=== PATIENT | female | born 1940 | race Caucasian/White ===

== ENCOUNTER → 2022-08-30 | Outpatient (CLI) | payer MEDICARE, SELFPAY ==
--- NOTE | 2022-08-30 13:09 | CT_ITS ---
STUDY: CT ABDOMEN AND PELVIS WITH AND WITHOUT CONTRAST REASON FOR EXAM: Female, 82 years old. HYDRONEPHROSIS AND BLADDER PROLAPSE. DID 2 DEALYS UP TO 12 MINUTES AND NO CONTRAST IN BLADDER. RADIATION DOSAGE (If Supplied By Facility): CTDIvol = ( 19.12 ) mGy, DLP = ( 4302.19 ) mGycm TECHNIQUE: Transaxial images were obtained from the dome of the diaphragm to the symphysis pubis without oral contrast. IV 100mL Isovue-300 was administered. Sagittal and coronal images were reconstructed. Individualized dose optimization techniques were used for this CT. COMPARISON: None. FINDINGS: Small bilateral pleural effusions with bibasilar atelectasis. Coronary artery calcification. Normal liver. The patient is status post cholecystectomy. Normal spleen. There is diffuse atrophy of the pancreas. Normal bilateral adrenal glands. Marked degree of bilateral hydronephrosis. Bilateral hydroureters down to the urinary bladder. Nonspecific bilateral perinephric stranding more prominent on the right side. 2 cm cyst in the posterior midportion of the right kidney. There is a small hiatal hernia. Normal small intestine. There are multiple colonic diverticula consistent with diverticulosis. The appendix is visualized and appears normal. There is diffuse atherosclerotic calcification of the abdominal aorta and its major visceral branches, without a demonstrated aneurysm. Normal inferior vena cava. Normal retroperitoneum. The bladder is distended. There is evidence of bladder prolapse. As suspect prolapse of the bladder with a fibroid change. Normal abdominal wall. There are diffuse degenerative changes of the visualized lumbar spine. CT/CT Abd/Pelvis W/WO Contrast IMPRESSION: Bilateral hydronephrosis and hydroureters. There is evidence of a prolapse of the urinary bladder and uterus. Status post cholecystectomy. Mild degree of sigmoid diverticulosis. Small bilateral pleural effusions with bibasilar atelectasis. Electronically Signed: Gurinder Galvin MD at 14:13 EDT ,
[2022-08-30 13:40] LABS: CREATININE FINGERSTICK 1.1 mg/dL (0.55-1.02)
== END | disposition home or self-care (01) ==
LOC: CT 13:06
PROVIDERS: Visit Provider Urology
DX: N13.30 Unspecified hydronephrosis (principal)
CPT/HCPCS: 74178; Q9967